=== PATIENT | male | born 1945 | race Caucasian/White ===

== ENCOUNTER 2017-04-13 10:06 | Emergency (ER) | payer OTHER ==
[~2017-04-13] VITALS: Ht 182.9 cm; Wt 138.0 kg
[~2017-04-13 10:06] MED LIST: ATOR40TA PO; GLIP10TA6 PO; METF-324 PO; METO25 PO; PIOG30TA4 PO; TAMS0.4C67 PO; WARF5TAB PO
[2017-04-13 10:08] VITALS: BP 126/60; PULSE 78; RESP 20; TEMP 97.7; O2SAT 95
--- NOTE | 2017-04-13 12:18 | PD ---
HPI Chief Complaint: Musculoskeletal Complaint Time Seen by Provider: 12:02 Travel History International Travel<30 days: No Contact w/Intl Traveler<30days: No Traveled to known affect area: No History of Present Illness HPI The patient is a 71-year-old male who presents to the emergency department for left knee pain. The patient states he has progressing left knee pain over the last several months, since December. The patient has fallen several times secondary to his knee "giving out ". The patient states that he fell on , landed in a flexed position of the anterior aspect of the left knee. He does know progressing pain over the last week. The patient has been evaluated by physical therapy and undergoes physical therapy several times per week. However, the patient is unable to obtain a referral from his primary physician, Mich Gamble, for his continuing left knee pain. The patient has difficulty transitioning from a sitting position or from the bed to his wheelchair, is mostly wheelchair bound at this time. He has very limited mobility with his walker. PFSH Past Medical History Cardiovascular Problems: Yes (VALVE REPLACEMENT) Diabetes: Yes (METFORMIN) Respiratory: Yes (ASTHMA) Social History Tobacco Use: No Allergies-Medications (Allergen,Severity, Reaction): Coded Allergies: Sulfa (Verified Allergy, Severe, Shortness of Breath, 04/13/17) Reported Meds & Prescriptions Reported Meds & Active Scripts Active Reported Pioglitazone (Pioglitazone HCl) 30 Mg Tab 30 Mg PO DAILY Metoprolol Tartrate 25 Mg Tab 25 Mg PO BID Glipizide 10 Mg Tab 10 Mg PO BIDAC Take 30 minutes before a meal Atorvastatin (Atorvastatin Calcium) 40 Mg Tab 40 Mg PO HS Flomax (Tamsulosin HCl) 0.4 Mg Cap 0.4 Mg PO HS Warfarin 7.5 Mg Tab Unknown Dose PO DAILY Metformin (Metformin HCl) 1,000 Mg Tab 1,000 Mg PO BIDPC With meals Review of Systems Except as stated in HPI: all other systems reviewed are Neg Cardiovascular: No: Chest Pain or Discomfort Respiratory: No: Shortness of Breath Gastrointestinal: No: Nausea, Vomiting, Abdominal Pain Musculoskeletal: Positive: Limited ROM, Weakness, Pain Neurologic: No: Paresthesia, Sensory Disturbance Physical Exam Narrative GENERAL: Awake, alert, pleasant 71-year-old male who appears his stated age and is in no acute respiratory distress. Patient is noted to have limited mobility from the wheelchair to the stretcher for evaluation. SKIN: Focused skin assessment warm/dry. HEAD: Atraumatic. Normocephalic. EYES: No injection or drainage. ENT: No nasal bleeding or discharge. Mucous membranes pink and moist. NECK: Trachea midline. No JVD. GASTROINTESTINAL: Abdomen soft, obese, no rebound tenderness. MUSCULOSKELETAL: The left lower extremity has no obvious edema with compared to the right lower extremity. Positive distal pulses. Flexion of the right hip, extension her right knee, plantar flexion/dorsiflexion of the right ankle, and flexion of the right great toe is 5/5. Hip flexion on the left is 4+5, extension left knee 4+/5, plantar flexion/dorsiflexion is 5/5 and flexion the great toe is 5/5 on the left. Limited mobility from wheelchair to the bed, unable to bear weight on the left lower extremity. NEUROLOGICAL: Awake and alert. No obvious cranial nerve deficits. Motor grossly within normal limits. Normal speech. Sensation is intact lower extremity is bilaterally. PSYCHIATRIC: Appropriate mood and affect; insight and judgment normal. Data Data Last Documented VS Vital Signs Date Time Temp Pulse Resp B/P Pulse Ox O2 Delivery O2 Flow Rate FiO2 04/13/17 10:08 97.7 78 20 126/60 95 Room Air Orders Knee, Complete (4vws) (04/13/17 ) Radiology Film Requests (04/13/17 ) [facility] Medical Decision Making Medical Screen Exam Complete: Yes Emergency Medical Condition: Yes Medical Record Reviewed: Yes Interpretation(s) Last Impressions Knee X-Ray 04/13/17 0000 Signed Impressions: Service Date/Time: Thursday, April 13, 2017 12:38 - CONCLUSION: Mild degenerative changes, negative for fracture. Heber Mckinley MD FACR Differential Diagnosis Differential diagnosis includes fracture, dislocation, sprain, strain, arthropathy, myelopathy. Narrative Course X-ray, 4 view, the left knee was obtained. I discussed the patient with case management to evaluate if the patient needs a referral to see orthopedics from his primary physician. The patient's x-ray reveals degenerative changes, no evidence of fracture. Case management did review the patient's insurance, states the patient must have a reference/referral from his primary physician. I advised the patient to follow-up with his primary physician for referral to orthopedics, he may benefit from orthopedic consultation and continuing physical therapy. The patient is also advised to wear an [id number] knee brace if tolerable that will not impinge his transition from the wheelchair to the bed and/or chair. Diagnosis Primary Impression: Recurrent left knee instability Patient Instructions: General Instructions Additional Instructions: These provide a patient a copy of his x-ray report as well as the disc of x- rays. Follow-up with your primary physician, I believe you need referral to see an field marketing specialist in regards to continuing physical therapy and/or joint instability. Knee brace for support as needed. Disposition: 01 DISCHARGE HOME Condition: Stable Giorgio Laguna MD April 13, 2017 12:18
[2017-04-13] MEDS ORDERED: TAMS5CAP PO (12:19)
[2017-04-13] MEDS ORDERED: ATOR40TA16 PO (12:19)
[2017-04-13] MEDS ORDERED: METF1000 PO (12:19)
[2017-04-13] MEDS ORDERED: WARF-21 PO (12:19)
[2017-04-13] MEDS ORDERED: METO25TA3 PO (12:19)
[2017-04-13] MEDS ORDERED: GLIP10TA6 PO (12:19)
[2017-04-13] MEDS ORDERED: PIOG30TA4 PO (12:20)
--- NOTE | 2017-04-13 12:58 | RADRPT ---
EXAM DATE/TIME: 04/13/2017 12:38 [facility] COMPARISON: No previous studies available for comparison. INDICATIONS : Fell twice 3 days ago, pain left patella and lateral side of left knee MEDICAL HISTORY : None. SURGICAL HISTORY : None. ENCOUNTER: Initial ACUITY: 3 days PAIN SCORE: 7/10 LOCATION: Left knee FINDINGS: Four view examination of the left knee demonstrates no evidence of fracture or dislocation. Mild deg enerative changes are noted. Bony mineralization is normal. The articular surfaces are intact. The suprapatellar soft tissues have a normal configuration. CONCLUSION: Mild degenerative changes, negative for fracture. Heber Mckinley MD FACR on April 13, 2017 at 12:55 Board Certified Radiologist. This report was verified electronically.
== END 2017-04-13 14:24 | disposition home or self-care (01) ==
LOC: NEPD 10:06
DX: M23.52 Chronic instability of knee, left knee (principal); E11.9 Type 2 diabetes mellitus without complications; Z79.84 Long term (current) use of oral hypoglycemic drugs; Z95.2 Presence of prosthetic heart valve; Z88.2 Allergy status to sulfonamides
CPT/HCPCS: 73564; 99283